=== PATIENT | female | born 1995 | race African-American/Black ===

== ENCOUNTER 2017-07-21 07:08 | Emergency (ER) | payer OTHER ==
[2017-07-21 07:27] VITALS: BP 122/85; PULSE 101; TEMP 98.9; BMI 28.1
[2017-07-21 07:43] LABS: PH,URINE 5.5 (4.5-8); URINE APPEARANCE Clear; URINE BILIRUBIN Negative (NEGATIVE); URINE GLUCOSE (UA) Negative (NEGATIVE); URINE KETONE 2+ (NEGATIVE); URINE NITRITE Negative (NEGATIVE); URINE PROTEIN Negative (NEGATIVE); URINE UROBILINOGEN 0.2 (0.2-1.0)
[2017-07-21 07:44] LABS: HCG,QUALITATIVE URINE NEGATIVE
--- NOTE | 2017-07-21 07:47 | PDOC ---
History of Present Illness - General Chief Complaint: Vaginal Sxs Stated Complaint: VAGINAL SXS Time Seen by Provider: 07/21/17 07:15 - History of Present Illness Initial Comments: 07/21/17 07:38 22 F with h/o DM, recurrent vaginal candidiasis, depression, anxiety, presenting with vaginal itching and white discharge x 3 days. Pt denies dysuria , denies urinary frequency. Denies pain. Denies F/C. Pt states this feels like a yeast infection. Pt states LMP was 2 weeks ago, is sexually active but uses protection. No flank pain. Past History - Past Medical History Allergies/Adverse Reactions: Allergies Allergy/AdvReac Type Severity Reaction Status Date / Time No Known Allergies Allergy Verified 07/21/17 07:14 Home Medications: Ambulatory Orders Fluconazole 150 mg PO DAILY #40 tablet 07/21/17 Insulin Glargine,Hum.rec.anlog [Lantus] 20 unit SQ BID 07/21/17 Insulin Lispro [Humalog] 100 unit SQ ASDIR 07/21/17 Ranitidine HCl [Zantac] 150 mg PO DAILY 07/21/17 Trazodone HCl 50 mg PO HS 07/21/17 Vortioxetine Hydrobromide [Trintellix] 20 mg PO DAILY 07/21/17 COPD: No - Suicide/Smoking/Psychosocial Hx Smoking History: Former smoker Have you smoked in the past 12 months: Yes If you are a former smoker, when did you quit?: MAY 2016 Information on smoking cessation initiated: Yes 'Breaking Loose' booklet given: 07/21/17 Hx Alcohol Use: No Drug/Substance Use Hx: No Substance Use Type: None Review of Systems - Review of Systems Comments:: 07/21/17 07:52 "GENERAL/CONSTITUTIONAL: No fever or chills. No weakness. HEAD, EYES, EARS, NOSE AND THROAT: No change in vision. No ear pain or discharge. No sore throat. CARDIOVASCULAR: No chest pain or shortness of breath. RESPIRATORY: No cough, wheezing, or hemoptysis. GASTROINTESTINAL: No nausea, vomiting, diarrhea or constipation. GENITOURINARY: + white vaginal discharge, itching MUSCULOSKELETAL: No joint or muscle swelling or pain. No neck or back pain. SKIN: No rash NEUROLOGIC: No headache, vertigo, loss of consciousness, or change in strength/ sensation. ENDOCRINE: No increased thirst. No abnormal weight change. HEMATOLOGIC/LYMPHATIC: No anemia, easy bleeding, or history of blood clots. ALLERGIC/IMMUNOLOGIC: No hives or skin allergy. " *Physical Exam - Vital Signs Last Vital Signs Temp Pulse Resp BP Pulse Ox 98.9 F 101 H 20 122/85 99 07/21/17 07:09 07/21/17 07:09 07/21/17 07:09 07/21/17 07:09 07/21/17 07:09 - Physical Exam Comments: 07/21/17 07:53 "GENERAL: Awake, alert, and fully oriented, in no acute distress HEAD: No signs of trauma EYES: PERRLA, EOMI, sclera anicteric, conjunctiva clear ENT: Auricles normal inspection, hearing grossly normal, nares patent, oropharynx clear without exudates. Moist mucosa NECK: Nontender, no stepoffs, Normal ROM, supple, no lymphadenopathy, JVD, or masses LUNGS: Breath sounds equal, clear to auscultation bilaterally. No wheezes, and no crackles HEART: Regular rate and rhythm, normal S1 and S2, no murmurs, rubs or gallops ABDOMEN: Soft, nontender, normoactive bowel sounds. No guarding, no rebound. No masses EXTREMITIES: Normal range of motion, no edema. No clubbing or cyanosis. No cords, erythema, or tenderness NEUROLOGICAL: Cranial nerves II through XII intact. 5/5 strength and sensation in all extremities, Normal speech, normal gait, normal cerebellar function SKIN: Warm, Dry, normal turgor, no rashes or lesions noted. : no CMT, no bleeding, + thick white discharge, no adnexal masses/tenderness, os closed Medical Decision Making - Medical Decision Making 07/21/17 07:53 22 F with likely vaginal candidiasis. Pt has taken diflucan, both PO and suppository, in the past with no relief. Has only taken single doses of diflucan in the past. - Diflucan 150mg daily x 10 days - oliving machine operator f/u *DC/Admit/Observation/Transfer Diagnosis at time of Disposition: Milvia infection - Discharge Dispostion Disposition: HOME - Prescriptions Prescriptions: Fluconazole 150 mg PO DAILY #40 tablet - Referrals Referrals: Frank Kramer MD [Staff Physician] - - Patient Instructions Printed Discharge Instructions: DI for Vaginal Yeast Infection Additional Instructions: You have a yeast infection. Take the fluconazole once a day for 10 days, followed by once a week for 6 months. Follow up with a polymerization oven operator within 1 week for further evaluation of your recurrent yeast infections. Call the number provided to make an appointment. If you experience worsening symptoms, fevers, chills, or any other concerning symptoms, return to the ER immediately. - Post Discharge Activity - Attestations Physician Attestion: 07/21/17 08:05 I, Dr. Christ Garland MD, attest that this document has been prepared under my direction and personally reviewed by me in its entirety. I further attest, that it accurately reflects all work, treatment, procedures and medical decision -making performed by me.
[2017-07-21 07:58] LABS: URINE BLOOD Trace-intact (NEGATIVE); URINE COLOR YELLOW; URINE LEUK ESTERASE TRACE (NEGATIVE)
[2017-07-21] MEDS ORDERED: FLUCONAZOLE 50 MG TABLET PO ONE (08:02)
[2017-07-21] MEDS ORDERED: FLUCONAZOLE 150 MG TABLET PO ONE (08:19)
[2017-07-21 08:33] LABS: URINE RBC 0-2 /hpf (0-3)
[2017-07-21 08:34] LABS: EPI CELLS FEW /HPF; URINE BACTERIA RARE /hpf (NEGATIVE)
== END 2017-07-21 08:28 | disposition home or self-care (01) ==
LOC: FER 07:08
DX: B37.3 Candidiasis of vulva and vagina (principal); Z87.891 Personal history of nicotine dependence
CPT/HCPCS: 81003; 81015; 84703; 87086; 99281-25